=== PATIENT | female | born 1990 | race African-American/Black ===

== ENCOUNTER 2021-11-11 03:25 | Inpatient (IN) ==
[2021-11-11] MEDS ORDERED: ONDANSETRON 4 MG/2 ML VIAL IV PRN (03:39)
[2021-11-11] MEDS ORDERED: TRANEXAMIC ACID 1,000 MG in SODIUM CHLORIDE 0.9% 100 ML IV PRN (03:39)
[2021-11-11] MEDS ORDERED: CARBOPROST TROMETHAMINE 250 MCG/ML AMP IM PRN (03:39)
[2021-11-11] MEDS ORDERED: MEPERIDINE 50 MG/1 ML VIAL IV PRN (03:39)
[2021-11-11] MEDS ORDERED: OXYTOCIN/LR 20 UNIT/1,000 ML BAG IV ONE ×2 (03:39→15:47)
[2021-11-11] MEDS ORDERED: METHYLERGONOVINE 0.2 MG/1 ML AMP IM PRN (03:39)
[2021-11-11] MEDS ORDERED: miSOPROStoL 200 MCG TABLET RECTAL PRN (03:39)
[2021-11-11] MEDS ORDERED: AMPICILLIN INJ 2,000 MG in SODIUM CHLORIDE 0.9% 100 ML IV ONE (04:00)
[2021-11-11] MEDS: LACTATED RINGERS 1,000 ML IV SCH ×2 (04:00→11:29)
[2021-11-11] MEDS ORDERED: OXYTOCIN/LR 20 UNIT/1,000 ML BAG IV SCH (04:00)
[2021-11-11 04:04] LABS: Bacteria,Urine Occasional /HPF (Few); Glucose,Urine (UA) Negative (Negative); Mucus,Urine Occasional /LPF (Occasional); Protein,Urine Negative (Negative); RBC,Urine 1 /HPF (0-4); Squamous Epithelial Cell,Urine Occasional /HPF (0-10); Urine Appearance Clear (Clear); Urine Color Light Yellow (Yellow)
[2021-11-11 04:05] LABS: Bilirubin,Urine Negative (Negative); Blood, Urine Trace mg/dL (Negative); Ketones,Urine Trace mg/dL (Negative); Nitrite,Urine Negative (Negative); Urine Urobilinogen 0.2 eU/dL (<2.0)
[2021-11-11 04:42] LABS: Basophils % 0.3 % (0.0-0.8); Eosinophils # 0.1 10*3/uL (0.0-0.87); Eosinophils % 1.6 % (0.00-10.9); Hematocrit 34.7 VOL% (35.7-47.0); Hemoglobin 10.6 GM/DL (12.0-16.0); Immature Granulocytes % 0.8 %; Immature Granulocytes Absolute 0.06 #; Lymphocytes # 2.3 10*3/uL (1.4-4.0); Lymphocytes % 29.5 % (21.3-54.2); Mean Corpuscular HGB Conc 30.5 GM/DL (32-36); Mean Corpuscular Volume 74.6 FL (87-102); Mean Platelet Volume 9.8 FL (9.6-12.0); Monocytes # 0.6 10*3/uL (0.11-0.8); Monocytes % 7.1 % (1.7-12.7); Neutrophils % 60.7 % (38.7-73.9); Platelet Count 286 T/CUMM (130-400); Red Blood Count 4.65 MC/CUMM (3.8-5.5); Red Cell Distribution Width 17.5 % (9.3-17.3); White Blood Count 7.9 T/CUMM (4-12)
[2021-11-11 05:21] LABS: Alanine Aminotransferase 19 U/L (13-56); Albumin 2.8 G/DL (3.4-5.0); Alkaline Phosphatase 163 U/L (45-117); Aspartate Amino Transferase 20 U/L (0-37); Bilirubin,Total < 0.39 MG/DL (0.20-1.00); Blood Urea Nitrogen 9 MG/DL (7-18); Calcium 9.5 MG/DL (8.5-10.1); Carbon Dioxide 20 MMOL/L (21-32); Chloride 108 MMOL/L (98-107); Glucose 86 MG/DL (74-106); Potassium 3.8 MMOL/L (3.5-5.1); Sodium 136 MMOL/L (136-145); Total Protein 6.6 G/DL (6.4-8.2)
[2021-11-11 08:02] LABS: Protein/Creatinine Ratio,Urine 0.3 RATIO
[2021-11-11 08:28] LABS: INR 0.9; Partial Thromboplastin Time 25.7 SECS (23.7-32.9)
[2021-11-11] MEDS: AMPICILLIN INJ 1,000 MG in SODIUM CHLORIDE 0.9% 100 ML IV SCH ×2 (08:51→12:35)
[2021-11-11] MEDS ORDERED: NIFEdipine 10 MG CAPSULE PO PRN (09:03)
[2021-11-11] MEDS ORDERED: NIFEdipine 10 MG CAPSULE PO ONE (09:06)
[2021-11-11] MEDS ORDERED: miSOPROStoL 200 MCG TABLET ONE (10:16)
[2021-11-11] MEDS ORDERED: TRANEXAMIC ACID 1,000 MG/10 ML VIAL ONE (10:16)
[2021-11-11] MEDS ORDERED: SODIUM CHLORIDE 0.9% 0 ML IV ONE (10:16)
[2021-11-11] MEDS ORDERED: CARBOPROST TROMETHAMINE 250 MCG/ML AMP IM ONE (12:42)
[2021-11-11] MEDS ORDERED: METHYLERGONOVINE 0.2 MG/1 ML AMP ONE (12:42)
[2021-11-11 13:19] LABS: Cord Venous Blood PCO2 43.9 MMHG; Cord Venous Blood PO2 31.3
[2021-11-11] MEDS ORDERED: WITCH HAZEL PADS 100/JAR TOP PRN (15:47)
[2021-11-11] MEDS ORDERED: LANOLIN 50% CREAM 0.3 OZ TUBE TOP PRN (15:47)
[2021-11-11] MEDS ORDERED: BENZOCAINE 20%/MENTHOL 0.5% SPRAY 56 GM CAN TOP PRN (15:47)
[2021-11-11] MEDS ORDERED: HYDROCORTISONE 2.5% RECTAL CREAM 30 GM TUBE TOP PRN (15:47)
[2021-11-11] MEDS ORDERED: oxyCODONE/ACETAMINOPHEN 5-325 MG TABLET PO PRN ×2 (15:47)
[2021-11-11] MEDS ORDERED: RHO(D) IMMUNE GLOBULIN 300 MCG SYRINGE IM ONE (15:47)
[2021-11-11] MEDS ORDERED: DIPH/TET/ACEL PERT BOOSTER VACCINE 0.5 ML VIAL IM ONE (15:47)
[2021-11-11] MEDS ORDERED: BISACODYL 10 MG SUPP RECTAL PRN (15:47)
[2021-11-11] MEDS ORDERED: ACETAMINOPHEN 325 MG TABLET PO PRN (15:47)
[2021-11-11] MEDS ORDERED: MEASLES/MUMPS/RUBELLA VACCINE 0.5 ML VIAL SUBCUT ONE (15:47)
[2021-11-11] MEDS: IBUPROFEN 800 MG TABLET PO PRN (16:39)
[2021-11-11] MEDS ORDERED: ALUMINUM/MAGNES/SIMETH MAX STR 30 ML UDCUP PO PRN (19:32)
[2021-11-12 05:50] LABS: Basophils % 0.3 % (0.0-0.8); Eosinophils # 0.1 10*3/uL (0.0-0.87); Eosinophils % 0.7 % (0.00-10.9); Immature Granulocytes % 0.7 %; Immature Granulocytes Absolute 0.08 #; Lymphocytes # 3.1 10*3/uL (1.4-4.0); Lymphocytes % 25.2 % (21.3-54.2); Mean Corpuscular HGB Conc 30.3 GM/DL (32-36); Mean Corpuscular Volume 74.5 FL (87-102); Mean Platelet Volume 9.4 FL (9.6-12.0); Monocytes # 0.8 10*3/uL (0.11-0.8); Monocytes % 6.9 % (1.7-12.7); Neutrophils % 66.2 % (38.7-73.9); Platelet Count 233 T/CUMM (130-400); Red Blood Count 4.43 MC/CUMM (3.8-5.5); Red Cell Distribution Width 17.3 % (9.3-17.3); White Blood Count 12.2 T/CUMM (4-12)
[2021-11-12] MEDS: DOCUSATE SODIUM 100 MG CAPSULE PO SCH ×3 (08:17→23:47)
[2021-11-12] MEDS: IBUPROFEN 800 MG TABLET PO PRN (23:52)
[2021-11-13] MEDS: DOCUSATE SODIUM 100 MG CAPSULE PO SCH (09:12)
[2021-11-13 12:35] VITALS: BP 125/64
== END 2021-11-13 13:15 | disposition home or self-care (01) | DRG 560 ==
LOC: N.LD 03:25 → N.OB 15:30
PROVIDERS: ADMIT Obstetrics & Gynecology; ATTEND Obstetrics & Gynecology